=== PATIENT | female | born 1965 | race Caucasian/White ===

== ENCOUNTER 2019-07-30 11:07 | Emergency (ER) | payer OTHER, SELFPAY ==
[2019-07-30 11:25] VITALS: BP 133/97; PULSE 108; RESP 20; TEMP 37.3; O2SAT 97
--- NOTE | 2019-07-30 11:54 | ED.URI ---
HPI - URI/Sore Throat General Chief Complaint: Upper Respiratory Infection Stated Complaint: cough Time Seen by Provider: 07/30/19 11:39 Source: patient and RN notes reviewed Mode of arrival: ambulatory Limitations: no limitations History of Present Illness HPI Narrative: Pt is a 54 y/o female who presents to the ED with c/o a cough which began 4 days ago. Pt states she was exhibiting similar symptoms 2 weeks ago and went to an Urgent Care. She was diagnosed with possible pneumonia and prescribed with Erythromycin and Prednisone medications which began to alleviate her symptoms. However, she states her cough began shortly after she was done with her medications. Pt also reports a sore throat and a rash. She denies any PMHx of asthma. MD elicited complaint: cough Onset (ago): day(s) (4 days ago) Consistency: constant Able to tolerate fluids by mouth: Yes Exacerbating factors: nothing Relieving factors: other (antibiotic medication) Associated symptoms: sore throat and other (rash) Related Data Home Medications Medication Instructions Recorded Confirmed No Home Medications 07/30/19 07/30/19 Allergies Allergy/AdvReac Type Severity Reaction Status Date / Time No Known Allergies Allergy Verified 07/08/19 10:17 Review of Systems Review of Systems: All systems reviewed & are unremarkable except as noted in HPI and below ENT: Reports sore throat Respiratory: Respiratory: Reports cough Integumentary/Breasts: Skin/Breast: Reports rash PMFSH Past Medical History Medical History (Updated 07/30/19 @ 12:38 by Daniella Bonner) No pertinent past medical history Surgical History Surgical History (Updated 07/30/19 @ 12:38 by Daniella Bonner) No pertinent past surgical history Social History Social History (Updated 07/30/19 @ 12:38 by Daniella Bonner) Smoking status: Smoker, status unknown Exam Narrative: Exam Narrative: GENERAL: Well-appearing, well-nourished, and in no acute distress. HEAD: Normocephalic, atraumatic. EYES: PERRLA and EOMI. ENT: Nares clear, no rhinorrhea or epistaxis. Mucous membranes moist exudates on the left tonsils. NECK: Supple. CHEST: Clear to auscultation. No respiratory distress. HEART: Regular rate and rhythm. No murmur heard. Normal peripheral pulses.. EXTREMITIES: Normal range of motion. No edema. SKIN: Warm, dry, no rash. NEURO: No focal deficits. Alert and oriented x3. PSYCH: Normal mood and affect. Course Course Emergency Course: Patient refused to get strep screen as she gags Vital Signs Vital signs: Vital Signs Temperature 37.3 C 07/30/19 11:25 Pulse Rate 108 H 07/30/19 11:25 Respiratory Rate 07/30/19 11:25 Blood Pressure 133/97 H 07/30/19 11:25 Pulse Oximetry 97 07/30/19 11:25 Temperature 37.3 C 07/30/19 11:25 Pulse Rate 108 H 07/30/19 11:25 Respiratory Rate 07/30/19 11:25 Blood Pressure 133/97 H 07/30/19 11:25 Pulse Oximetry 97 07/30/19 11:25 MDM - URI/Sore Throat Lab Data Labs: Influenza A Screen Negative Reference Range: Negative Influenza B Screen Negative Reference Range: Negative Discharge Plan Discharge Prescriptions: No Action No Home Medications RF: 0
--- NOTE | 2019-07-30 12:34 | PC.NURSE ---
This RN at bedside >10 min attempting to collect strep screen. Pt extremely fearful of procedure despite reassurance. Note pt has multiple yellow pockets to peritonsillar area. Dr. Najera made aware.
== END 2019-07-30 12:49 | disposition home or self-care (01) ==
PROVIDERS: Emergency Provider Family Medicine; Referring Provider Family Medicine
DX: B34.9 Viral infection, unspecified (principal)
CPT/HCPCS: 87804; 99283